=== PATIENT | female | born 1930 | race Caucasian/White ===

== ENCOUNTER 2016-05-10 15:01 | Emergency (ER) | payer MEDICARE ==
[~2016-05-10] VITALS: Ht 165.1 cm; Wt 70.0 kg
[2016-05-10 15:03] VITALS: BP 125/81; PULSE 89; RESP 15; TEMP 97.2; O2SAT 98
--- NOTE | 2016-05-10 15:50 | PD ---
HPI Chief Complaint: Musculoskeletal Complaint Time Seen by Provider: 15:30 Travel History International Travel<30 days: No Contact w/Intl Traveler<30days: No Traveled to known affect area: No History of Present Illness HPI Patient is a 85-year-old female who presents him or trauma evaluation of 1 week of left leg pain. Patient states the pain runs down the lateral aspect of her left leg. She denies any injury, trauma, falls, tripping. She states that she was on Celebrex until a week ago when she felt as if it wasn't working so she stopped taking it. She called her doctor who told her she could try Aleve 1 tablet in the morning and one tablet at night. She states when she took the Aleve it helped but she would often forgets to take the nighttime dose. Patient states that the pain in her leg is worse in the morning upon awakening and improves with activity. She denies any numbness, tingling, swelling, weakness. She further denies any bladder or bowel incontinence, no back pain. [facility] Past Medical History Arthritis: Yes Social History Alcohol Use: No Tobacco Use: No Substance Use: No Review of Systems Except as stated in HPI: all other systems reviewed are Neg Musculoskeletal: Positive: Myalgias, Pain Physical Exam Narrative GENERAL: Well-developed, well-nourished, alert female. Resting comfortably in no acute distress. SKIN: Warm and dry. No edema, erythema noted in bilateral lower extremities. HEAD: Atraumatic. Normocephalic. EYES: Pupils equal and round. No scleral icterus. No injection or drainage. NECK: Trachea midline. No JVD. CARDIOVASCULAR: Regular rate and rhythm. No murmur appreciated. RESPIRATORY: No accessory muscle use. Clear to auscultation. Breath sounds equal bilaterally. GASTROINTESTINAL: Abdomen soft, non-tender, nondistended. Hepatic and splenic margins not palpable. MUSCULOSKELETAL: No obvious deformities. No clubbing. No cyanosis. No edema. Negative Homans sign, positive pedal pulses, brisk less than 3 second capillary refill. 5/5 muscle strength in bilateral lower extremities. Bilateral leg lift does not elicit pain in the back. Patient is neurovascularly intact. NEUROLOGICAL: Awake and alert. No obvious cranial nerve deficits. Motor grossly within normal limits. Normal speech. PSYCHIATRIC: Appropriate mood and affect; insight and judgment normal. Data Data Last Documented VS Vital Signs Date Time Temp Pulse Resp B/P Pulse Ox O2 Delivery O2 Flow Rate FiO2 05/10/16 15:03 97.2 89 15 125/81 98 MDM Medical Decision Making Medical Screen Exam Complete: Yes Emergency Medical Condition: Yes Interpretation(s) Vital Signs Date Time Temp Pulse Resp B/P Pulse Ox O2 Delivery O2 Flow Rate FiO2 05/10/16 15:03 97.2 89 15 125/81 98 Differential Diagnosis Arthritis versus DVT versus strain versus sprain versus fracture versus other Narrative Course Patient is a 85 year old female who presents emergency Department evaluation of 1 week of left lateral leg pain. Pain seems to have exacerbated when patient stopped taking Celebrex approximately 1 week ago. Pain is improved with Aleve when patient remembers to take it. Patient denies any injury or trauma. There is no edema, negative Homans sign noted. Patient has strong pedal pulses. She has full range of motion of bilateral lower extremities. No leg length discrepancy. Nothing to suggest a fracture or DVT. Patient was encouraged to maintain compliance with either Celebrex or the Aleve as previously prescribed. Patient and daughter verbalized understanding of these instructions. Patient is stable for discharge. Diagnosis Primary Impression: Arthritis Referrals: Primary Care Physician Patient Instructions: Arthritis (ED), General Instructions Additional Instructions: Follow-up with her primary doctor Medications as prescribed and/or recommended by your primary doctor Return to emergency department for new or worsening symptoms Med/Other Pt SpecificInfo: No Change to Meds Disposition: 01 DISCHARGE HOME Condition: Stable My Eller May 10, 2016 15:50
== END 2016-05-10 16:48 | disposition home or self-care (01) ==
LOC: NEPB 15:01
DX: M19.90 Unspecified osteoarthritis, unspecified site (principal)
CPT/HCPCS: 99282

== ENCOUNTER 2018-02-22 06:35 | Inpatient (IN) ==
[2018-02-22] MEDS ORDERED: Metoprolol Tartrate 25 MG Tablet PO ONE (07:15)
[2018-02-22] MEDS ORDERED: Chlorhexidine Gluconate 2% 1 Pack (2 Cloths) TOPICAL ONE (07:15)
[2018-02-22] MEDS ORDERED: Sodium Chlor 0.9% Inj 500 ML IV.CONT ONE (07:15)
[2018-02-22] MEDS ORDERED: Dexamethasone Inj 20 MG/5 ML Vial ONE (08:02)
[2018-02-22] MEDS ORDERED: ceFAZolin 2 GM Premix Inj 2 GM/50 ML PIGGYBACK IV.SIG ONE (08:02)
[2018-02-22] MEDS ORDERED: Sodium Chlor 0.9% Inj 250 ML ONE (08:03)
[2018-02-22] MEDS ORDERED: Propofol Inj 500 MG/50 ML Vial ONE (09:07)
[2018-02-22] MEDS ORDERED: Bupivacaine/Dextrose 0.75% Inj 2 ML Ampul ONE (09:08)
[2018-02-22] MEDS ORDERED: Dexamethasone Inj 20 MG/5 ML Vial IV.PUSH ONE (10:00)
[2018-02-22] MEDS ORDERED: SODIUM CHLOR 0.9% IV.SIG SCH ×2 (10:00→13:00)
[2018-02-22] MEDS ORDERED: ceFAZolin 2 GM IV; once IV.SIG ONE (10:00)
[2018-02-22] MEDS ORDERED: Sodium Chlor 0.9% Inj 73.07 ML, Ropivacaine 0.5% PF Inj 24.63 ML, Ketorolac Inj 30 MG, ... P-ARTICULR SCH ×5 (10:00)
[2018-02-22] MEDS ORDERED: TRANEXAMIC ACID IV.SIG SCH ×2 (10:00→13:00)
[2018-02-22] MEDS ORDERED: Vancomycin Inj 1,000 MG in Sodium Chlor 0.9% Inj 250 ML IV.SIG ONE (10:00)
[2018-02-22] MEDS ORDERED: Chlorhexidine 4% Topical 120 APPLIC/120 ML Bottle TOPICAL SCH (10:00)
[2018-02-22] MEDS ORDERED: Aluminum/Magnesium/Simethacone Susp 30 ML UDC PO PRN (11:20)
[2018-02-22] MEDS ORDERED: Bisacodyl 10 MG Supp RECTAL PRN (11:20)
[2018-02-22] MEDS ORDERED: Morphine Sulfate Inj 2 MG/ML Vial IV.PUSH PRN (11:20)
[2018-02-22] MEDS ORDERED: Post-op Orders (for Pharmacy) OTHER STA (11:20)
--- NOTE | 2018-02-22 11:26 | P.OP ---
- Preoperative Diagnosis (1) Osteoarthritis of left knee - Postoperative Diagnosis (1) Osteoarthritis of left knee Date of procedure: 02/22/18 Procedure: Left total knee arthroplasty Anesthesia: regional, spinal Surgeon: Camron Schmidt MD Cutter Hot Knife: UJANA Swenson The surgical procedure was assisted by my Advanced Registered Nurse Practitioner. My STARTING GATE DRIVER presence was necessary throughout this case for the manipulation and positioning of the surgical extremity. My STARTING GATE DRIVER was assisting me throughout the duration of this procedure. The skill set of an Advance Registered Nurse Practitioner was medically necessary to complete this procedure. During the surgical case, the surgical processor was working at the back table and the Advance Registered Nurse Practitioner was directly assisting me. Operation and Findings: IMPLANTS: DePuy Attune: Patella: size 35. Femur, posterior stabilized size 7. Tibia, rotating platform size 6. Tibial insert, rotating platform, posterior stabilized size 10 mm thickness. ESTIMATED BLOOD LOSS: 100 cc TOURNIQUET TIME: 32 minutes at 250 mmHg pressure. JUSTIFICATION FOR PROCEDURE: The patient has end-stage osteoarthritis to the knee. There is an attached conservative measures pathway form in the chart that describes the nonoperative measures that were undertaken prior to consideration of surgical management. The patient understood the risks and benefits of surgical management. See my office notes for further details PROCEDURE: The patient was brought back to the operative theatre. Adequate anesthesia was obtained. The patient received intravenous vancomycin and Ancef. The lower extremity was prepped and draped in the usual sterile fashion.The leg was exsanguinated, the tourniquet was raised. A standard anterior incision was performed followed by medial parapatellar arthrotomy was performed. End-stage arthritis was identified. Osteotomy of the patella was performed. We drilled holes for the patella. We trialed the patella component. We placed an intramedullary guide into the distal femur. We ultimately resected 13 mm off of the distal femur in 5 degrees of valgus. The remnants of the ACL and PCL were resected. Osteotomy of the proximal tibia was performed, resecting 5 mm off of the medial side. Note that there was already quite a bit of medial erosion of the medial tibial plateau which ultimately effectively created a larger tibial cut because of the erosion prior to resecting 5 mm. This was done with 3 degrees of posterior slope using an extramedullary guide. The distal end of the guide was placed in the mid aspect of the ankle. The femur was sized, and four chamfer cuts were completed in 3 of external rotation. We then cut the central box in the distal femur to replace the PCL. We resected the remnants of the menisci and removed osteophytes off of the femur and tibia. We then trialed the knee. We punched the tibia for the keel, and then used standard technique to cement in components. Excess cement was removed. We trialed the knee again and the final polyethylene thickness was chosen to provide extension to 0 degrees, and flexion of 140 degrees to gravity. The ligaments were appropriately balanced. Lateral release was necessary to obtain excellent patellofemoral tracking. The tourniquet was released and adequate hemostasis was obtained. An intra- articular injection of a ropivacaine cocktail was injected. The posterior knee was inspected for excess cement, which was removed. The final polyethylene was put into position after thorough irrigation. We then closed deep fascia with a #2 Stratafix followed by skin with 2-0 Vicryl followed by Dermabond dressing. Postop plan is to weight-bear as tolerated. DVT prophylaxis will be performed with SCDs, MARIPOSA crockett, early mobilization, and aspirin.
--- NOTE | 2018-02-22 12:27 | XR ---
EXAM DATE: 02/22/2018 12:21 PM EST AGE/SEX: 87 years / Female INDICATIONS: Post op left total knee replacement. CLINICAL DATA: This is the patient's initial encounter. Patient reports that signs and symptoms have been present for 1 day and indicates a pain score of Nonresponsive. MEDICAL/SURGICAL HISTORY: Arthritis. Hypercholesterolemia. Hypertension. Hysterectomy. Cici cystectomy. Tonsillectomy. COMPARISON: No prior exams available for comparison. FINDINGS: The patient's had a total knee arthroplasty in excellent position. There is no complications. Excellent alignment. CONCLUSION: Status post total knee arthroplasty in good position Electronically signed by: Elkin Mayorga MD 02/22/2018 12:26 PM EST
[2018-02-22] MEDS: Sod Chloride 0.9% Inj 1,000 ML IV.CONT SCH (12:45)
[2018-02-22] MEDS ORDERED: *morphine SULFATE 4 MG/ML PERIprocedure ONLY ONE ×3 (14:07→15:12)
[2018-02-22] MEDS: ceFAZolin 1 GM Premix Inj 1 GM/50 ML FROZ.PIGGY IV.SIG SCH ×2 (15:00→22:59)
--- NOTE | 2018-02-22 17:49 | P.DCO ---
- Physical Therapy Physical Therapy: Gait training, Transfer training, bed to chair Knee: Total knee Left Lower Extremity Weight Bearing: Weight bearing as tolerated Left Lower Extremity Range of Motion: Active ROM - Nursing Dressing changes: Do not change dressing - Certification Need for Home Health services: I have seen patient Elvia Albrecht on 02/22/18. My clinical findings support the need for the requested home health care services because: Need for Home Health Services: Limited ability to care for self, High risk of falls Homebound Certification: I certify that my clinical findings support that this patient is homebound because: Homebound Certification: Post-op weakness, Unsteady gait/balance
[2018-02-22] MEDS ORDERED: Zolpidem Tartrate 5 MG Tablet PO PRN (21:00)
[2018-02-22] MEDS: Multivitamin/Minerals Therapeutic Tablet PO SCH (23:00)
[2018-02-22] MEDS: Senna/Docusate Sodium 8.6/50 MG Tablet PO SCH (23:00)
[2018-02-23] MEDS: Sod Chloride 0.9% Inj 1,000 ML IV.CONT SCH ×2 (00:14→16:05)
[2018-02-23] MEDS: Brimonidine 0.2% Opth Drops 5 ML Bottle EACH EYE SCH ×3 (00:19→20:54)
[2018-02-23] MEDS: ceFAZolin 1 GM Premix Inj 1 GM/50 ML FROZ.PIGGY IV.SIG SCH (03:19)
[2018-02-23 05:58] LABS: Hematocrit 37.9 % (35.0-46.0); Hemoglobin 12.6 gm/dL (11.6-15.3)
--- NOTE | 2018-02-23 07:24 | P.PNOP ---
Subjective Interval history: The patient is resting comfortably in bed in no acute distress. The patient is using her CPM. The patient denies pain to the left knee. The patient has been ambulatory. The patient's daughter is at bedside. Physical Exam Vital signs: Vital Signs 02/22/18 07:53 02/22/18 08:36 02/22/18 11:48 Temperature 98.5 F 96.8 F L Pulse Rate 71 66 73 Respiratory Rate 20 18 Blood Pressure 129/67 107/72 Pulse Oximetry 97 100 100 02/22/18 12:00 02/22/18 12:15 02/22/18 12:30 Temperature Pulse Rate 71 71 74 Respiratory Rate 18 19 18 Blood Pressure 114/65 116/67 127/64 Pulse Oximetry 100 97 98 02/22/18 12:45 02/22/18 13:00 02/22/18 14:00 Temperature Pulse Rate 74 74 79 Respiratory Rate 19 17 18 Blood Pressure 114/63 122/58 L 138/66 Pulse Oximetry 97 97 99 02/22/18 15:00 02/22/18 16:00 02/22/18 19:57 Temperature 97.5 F L 97.5 F L Pulse Rate 80 82 89 Respiratory Rate 18 15 18 Blood Pressure 131/63 129/66 138/70 Pulse Oximetry 99 93 L 97 02/22/18 23:49 02/23/18 04:46 Temperature 97.7 F 98.2 F Pulse Rate 95 H 92 H Respiratory Rate 18 18 Blood Pressure 128/60 113/56 L Pulse Oximetry 92 L 92 L Intake & Output 02/22/18 02/23/18 02/23/18 18:59 06:59 18:59 Intake Total 1200.96 / 1200.96 770 / 770 Output Total 100 / 100 Balance 1100.96 / 1100.96 770 / 770 Weight 69.8 kg 69.8 kg Intake: IV 580.96 / 580.96 50 / 50 NS Inj 1,000 ML @ 80 mls/hr IV. 267 / 267 CONT .[id number] [facility] Rx#:[id number] Cyklokapron Inj 698 MG In NS 213.96 / 213.96 Inj 100 ML @ 200 mls/hr IV.SIG BACK END ARCHITECT [facility] Rx#:[id number] Ancef 1 GM Premix Inj 1 gm In 50 / 50 50 / 50 50 ml @ 100 mls/hr IV.SIG Q6H [facility] Rx#:[id number] Ancef 2 GM Premix Inj 2 gm In 50 / 50 50 ml @ 100 mls/hr IV.SIG ONCE ONE Rx#:[id number] Oral 120 / 120 720 / 720 Anesthesia Amount 500 / 500 Output: Urine 0 / 0 Estimated Blood Loss 100 / 100 Other: # Voids 1 Date of Last Bowel Movement 02/22/18 # Bowel Movements 0 Weight On Admission 69.8 kg Narrative: The patient's dressing is clean, dry, and intact. EHL/TA/G are intact. 2+ pedal pulse. The patient's calf is soft and nontender. Sensation is intact to light touch distally. Results - Labs CBC & Chem 7: 02/23/18 05:15 Laboratory Results - last 24 hr 02/22/18 02/23/18 07:55 05:15 Hgb 12.6 Hct 37.9 Blood Type O Positive Blood Type Recheck Required Antibody Screen Negative - Imaging Impressions Knee X-Ray 02/22/18 11:19 CONCLUSION: Status post total knee arthroplasty in good position - Procedures Left total knee arthroplasty Assessment and Plan - Problem List (1) Status post total knee replacement, left Code(s): Z96.652 - Presence of left artificial knee joint Status: Acute (2) Osteoarthritis of left knee Code(s): M17.12 - Unilateral primary osteoarthritis, left knee Status: Acute - Assessment and Plan POD #1: Left total knee arthroplasty 1. Weightbearing as tolerated on left lower extremity. 2. Aspirin 81 mg twice daily for DVT prophylaxis. 3. Ice as needed for swelling. 4. Stable per ortho for [facility] or Tuesday. 5. The patient will follow up with Dr. Schmidt and/or JUANA Coto as previously scheduled.
[2018-02-23] MEDS ORDERED: Dexamethasone Inj 20 MG/5 ML Vial IV.PUSH ONE (08:00)
[2018-02-23] MEDS: Senna/Docusate Sodium 8.6/50 MG Tablet PO SCH ×2 (09:32→20:51)
[2018-02-23] MEDS: Multivitamin/Minerals Therapeutic Tablet PO SCH ×2 (09:32→20:51)
[2018-02-23] MEDS: Timolol 0.5% Drops 5 ML Bottle EACH EYE SCH (12:12)
[2018-02-24 00:39] VITALS: O2SAT 92
[2018-02-24 07:12] LABS: Hematocrit 30.9 % (35.0-46.0); Hemoglobin 10.9 gm/dL (11.6-15.3)
[2018-02-24] MEDS: Senna/Docusate Sodium 8.6/50 MG Tablet PO SCH (08:04)
[2018-02-24] MEDS: Multivitamin/Minerals Therapeutic Tablet PO SCH (08:04)
[2018-02-24] MEDS: Sod Chloride 0.9% Inj 1,000 ML IV.CONT SCH (08:07)
[2018-02-24] MEDS: Timolol 0.5% Drops 5 ML Bottle EACH EYE SCH (10:39)
[2018-02-24] MEDS: Brimonidine 0.2% Opth Drops 5 ML Bottle EACH EYE SCH (10:39)
[2018-02-24 13:55] VITALS: RESP 16
[2018-02-24 15:52] VITALS: BP 140/64; PULSE 72; TEMP 97.2
== END 2018-02-24 17:04 ==
LOC: HSDI 06:35 → N06 16:47 → UNDODISIN 02-24 17:04
PROVIDERS: ADMIT Orthopaedic Surgery; ATTEND Orthopaedic Surgery